=== PATIENT | female | born 1990 | race Caucasian/White ===

== ENCOUNTER 2022-02-16 13:47 | Emergency (ER) | payer OTHER ==
[2022-02-16 16:52] LABS: BASOPHIL 0.5 % (0-2); EOSINOPHIL 3.2 % (0-5); HGB 14.1 g/dl (12.5-16.0); LYMPHOCYTE 26.8 % (15-48); MCH 30.7 pg (25.0-31.0); MCHC 34.4 g/dL (32.0-36.0); MCV 89.3 fL (78.0-100.0); MPV 10.5 fL (6.0-9.5); NEUTROPHIL 63.2 % (41-80); NRBC 0; PLT 291 K/uL (150-400); RBC 4.59 M/uL (4.20-5.40); RDW 12.5 % (11.5-14.0); WBC 10.1 K/uL (4.0-10.5)
[2022-02-16 17:33] LABS: ALBUMIN 3.9 g/dL (3.4-5.0); BILIRUBIN - TOTAL 0.4 mg/dL (0.2-1.0); BUN/CREAT RATIO (CALC) 11.9 RATIO; CREATININE 0.84 mg/dL (0.51-0.95); GLOBULIN (CALCULATION) 3.3 g/dL; POTASSIUM 3.5 mmol/L (3.5-5.1); TOTAL PROTEIN 7.2 g/dL (6.4-8.2)
[2022-02-16] MEDS ORDERED: MOTRIN600 MG PO (18:19)
== END 2022-02-16 18:25 | disposition home or self-care (01) ==
LOC: FER 13:47
PROVIDERS: Physician Assistant
DX: R07.9 Chest pain, unspecified (principal)
CPT/HCPCS: 36415; 71046; 80053; 83735; 84484; 85025; 93005

== ENCOUNTER 2022-06-02 16:43 | Emergency (ER) | payer OTHER ==
[~2022-06-02 16:43] MED LIST: MOTRIN600 MG PO
[2022-06-02] MEDS ORDERED: CEPHALEXIN500 MG PO (20:17)
== END 2022-06-02 20:45 | disposition home or self-care (01) ==
LOC: FER 16:43
DX: S61.412A Laceration without foreign body of left hand, initial encounter (principal); S00.83XA Contusion of other part of head, initial encounter; Z28.310 Unvaccinated for COVID-19; Z23 Encounter for immunization; V40.5XXA Car driver injured in collision with pedestrian or animal in traffic accident, initial encounter
CPT/HCPCS: 70450; 73090; 73130; 90471; 90715